=== PATIENT | male | born 1970 | race Caucasian/White ===

== ENCOUNTER → 2017-07-31 11:46 | Outpatient (CLI) | payer OTHER, SELFPAY ==
[2017-07-31 12:37] LABS: INR 3.1 (0.9-1.3); Prothrombin Time 33.3 SECONDS (10.1-12.7)
== END ==
PROVIDERS: PCP Family Medicine; Visit Provider Pharmacist Pharmacotherapy
DX: Z79.01 Long term (current) use of anticoagulants (principal)
CPT/HCPCS: 36415; 85610

== ENCOUNTER → 2017-08-07 13:39 | Outpatient (CLI) | payer OTHER, SELFPAY ==
[2017-08-07 14:55] LABS: INR 3.4 (0.9-1.3); Prothrombin Time 36.3 SECONDS (10.1-12.7)
== END ==
PROVIDERS: PCP Family Medicine; Visit Provider Pharmacist Pharmacotherapy
DX: Z79.01 Long term (current) use of anticoagulants (principal)
CPT/HCPCS: 36415; 85610

== ENCOUNTER → 2017-08-14 12:44 | Outpatient (CLI) | payer OTHER, SELFPAY ==
[2017-08-14 13:11] LABS: INR 4.1 (0.9-1.3); Prothrombin Time 44.2 SECONDS (10.1-12.7)
== END ==
PROVIDERS: PCP Family Medicine; Visit Provider Pharmacist Pharmacotherapy
DX: Z79.01 Long term (current) use of anticoagulants (principal)
CPT/HCPCS: 36415; 85610

== ENCOUNTER → 2017-08-21 13:07 | Outpatient (CLI) | payer OTHER, SELFPAY ==
[2017-08-21 13:33] LABS: INR 4.2 (0.9-1.3); Prothrombin Time 45.1 SECONDS (10.1-12.7)
== END ==
PROVIDERS: PCP Family Medicine; Visit Provider Pharmacist Pharmacotherapy
DX: Z79.01 Long term (current) use of anticoagulants (principal)
CPT/HCPCS: 36415; 85610

== ENCOUNTER → 2017-09-04 11:43 | Outpatient (CLI) | payer OTHER, SELFPAY ==
[2017-09-04 12:17] LABS: INR 3.8 (0.9-1.3); Prothrombin Time 40.6 SECONDS (10.1-12.7)
== END ==
PROVIDERS: PCP Family Medicine; Visit Provider Pharmacist Pharmacotherapy
DX: Z79.01 Long term (current) use of anticoagulants (principal)
CPT/HCPCS: 36415; 85610

== ENCOUNTER 2017-09-06 14:00 | Outpatient (RCR) | payer OTHER, SELFPAY | END 2017-09-06 15:17 | LOC: CAR 14:00 | PROVIDERS: PCP Family Medicine; Visit Provider Physician Assistant Medical | DX: Z95.812 Presence of fully implantable artificial heart (principal) | CPT/HCPCS: 93797; 93798 ==

== ENCOUNTER → 2017-10-19 10:55 | Outpatient (CLI) | payer OTHER, SELFPAY ==
[2017-10-19 12:47] LABS: Alanine Aminotransferase 35 IU/L (21-72); Albumin 3.8 g/dL (3.5-5.0); Albumin Globulin Ratio 1.5 (1.0-2.8); Alkaline Phosphatase 64 U/L (38-126); Aspartate Aminotransferase 18 IU/L (17-59); Bilirubin Total 0.2 mg/dL (0.2-1.3); Globulin 2.5 g/dL (1.7-4.1); HEMOLYSIS < 15 (0-50); Total Protein 6.3 g/dL (6.3-8.2)
== END ==
PROVIDERS: PCP Family Medicine; Visit Provider Internal Medicine Gastroenterology
DX: B18.2 Chronic viral hepatitis C (principal)
CPT/HCPCS: 36415; 80076; 86708; 87522

== ENCOUNTER → 2017-10-30 09:08 | Outpatient (CLI) | payer OTHER, SELFPAY ==
[2017-10-30 10:17] LABS: BUN Creatinine Ratio 27.6 (6-22); Blood Urea Nitrogen 47 mg/dL (9-20); Calcium 9.8 mg/dL (8.4-10.2); Carbon Dioxide 26 mmol/L (22-32); Chloride 101 mmol/L (98-107); Estimated Glomerular Filt Rate 43.2 mL/min (>60); Glucose 117 mg/dL (70-100); HEMOLYSIS < 15 (0-50); Potassium 3.8 mmol/L (3.4-5.1); Sodium 140 mmol/L (137-145)
[2017-11-02 16:48] LABS: Tacrolimus 10.4 mcg/L (5.0-20.0)
== END ==
PROVIDERS: PCP Family Medicine; Visit Provider Nurse Practitioner Acute Care
DX: Z94.1 Heart transplant status (principal)
CPT/HCPCS: 36415; 80048; 80197

== ENCOUNTER → 2017-11-15 09:34 | Outpatient (CLI) | payer OTHER, SELFPAY ==
[2017-11-15 10:53] LABS: BUN Creatinine Ratio 25.6 (6-22); Blood Urea Nitrogen 46 mg/dL (9-20); Carbon Dioxide 27 mmol/L (22-32); Chloride 99 mmol/L (98-107); Estimated Glomerular Filt Rate 40.5 mL/min (>60); Glucose 183 mg/dL (70-100); HEMOLYSIS < 15 (0-50); Potassium 4.1 mmol/L (3.4-5.1); Sodium 140 mmol/L (137-145)
[2017-11-18 11:47] LABS: Tacrolimus 11.6 mcg/L (5.0-20.0)
== END ==
PROVIDERS: PCP Family Medicine; Visit Provider Nurse Practitioner Acute Care
DX: Z94.1 Heart transplant status (principal)
CPT/HCPCS: 36415; 80048; 80197

== ENCOUNTER → 2017-11-28 11:11 | Outpatient (CLI) | payer OTHER, SELFPAY ==
[2017-11-28 12:28] LABS: BUN Creatinine Ratio 21.9 (6-22); Blood Urea Nitrogen 35 mg/dL (9-20); Calcium 10.2 mg/dL (8.4-10.2); Carbon Dioxide 30 mmol/L (22-32); Chloride 96 mmol/L (98-107); Estimated Glomerular Filt Rate 46.2 mL/min (>60); Glucose 122 mg/dL (70-100); HEMOLYSIS < 15 (0-50); Potassium 3.8 mmol/L (3.4-5.1); Sodium 142 mmol/L (137-145)
[2017-12-01 09:18] LABS: Tacrolimus 8.3 mcg/L (5.0-20.0)
== END ==
PROVIDERS: PCP Family Medicine; Visit Provider Internal Medicine Advanced Heart Failure and Transplant Cardiology
DX: Z94.1 Heart transplant status (principal)
CPT/HCPCS: 36415; 80048; 80197

== ENCOUNTER → 2017-12-26 09:48 | Outpatient (CLI) | payer OTHER, SELFPAY ==
[2017-12-26 11:06] LABS: Blood Urea Nitrogen 36 mg/dL (9-20); Calcium 9.9 mg/dL (8.4-10.2); Carbon Dioxide 27 mmol/L (22-32); Chloride 101 mmol/L (98-107); Estimated Glomerular Filt Rate 49.7 mL/min (>60); Glucose 133 mg/dL (70-100); HEMOLYSIS < 15 (0-50); Potassium 4.1 mmol/L (3.4-5.1); Sodium 142 mmol/L (137-145)
[2017-12-28 17:28] LABS: Tacrolimus 8.9 mcg/L (5.0-20.0)
== END ==
PROVIDERS: PCP Family Medicine; Visit Provider Nurse Practitioner Acute Care
DX: Z48.21 Encounter for aftercare following heart transplant (principal); Z94.1 Heart transplant status
CPT/HCPCS: 80048; 80197

== ENCOUNTER → 2018-01-11 10:23 | Outpatient (CLI) | payer OTHER, SELFPAY ==
[2018-01-11 11:34] LABS: Blood Urea Nitrogen 26 mg/dL (9-20); Calcium 9.2 mg/dL (8.4-10.2); Carbon Dioxide 25 mmol/L (22-32); Chloride 101 mmol/L (98-107); Estimated Glomerular Filt Rate 58.7 mL/min (>60); Glucose 117 mg/dL (70-100); HEMOLYSIS < 15 (0-50); Potassium 3.9 mmol/L (3.4-5.1); Sodium 141 mmol/L (137-145)
== END ==
PROVIDERS: PCP Family Medicine; Visit Provider Internal Medicine Advanced Heart Failure and Transplant Cardiology
DX: Z48.21 Encounter for aftercare following heart transplant (principal); Z94.1 Heart transplant status
CPT/HCPCS: 36415; 80048; 80197

== ENCOUNTER → 2018-01-30 11:39 | Outpatient (CLI) | payer OTHER, SELFPAY | PROVIDERS: PCP Family Medicine; Visit Provider Internal Medicine Advanced Heart Failure and Transplant Cardiology | DX: Z48.21 Encounter for aftercare following heart transplant (principal); Z94.1 Heart transplant status; R19.7 Diarrhea, unspecified | CPT/HCPCS: 36415; 87497 ==

== ENCOUNTER → 2018-02-14 11:16 | Outpatient (CLI) | payer OTHER, SELFPAY ==
[2018-02-14 12:13] LABS: Blood Urea Nitrogen 42 mg/dL (9-20); Calcium 9.8 mg/dL (8.4-10.2); Carbon Dioxide 27 mmol/L (22-32); Chloride 101 mmol/L (98-107); Estimated Glomerular Filt Rate 33.7 mL/min (>60); Glucose 113 mg/dL (70-100); HEMOLYSIS < 15 (0-50); Potassium 3.9 mmol/L (3.4-5.1); Sodium 143 mmol/L (137-145)
== END ==
PROVIDERS: PCP Family Medicine; Visit Provider Nurse Practitioner Acute Care
DX: Z48.21 Encounter for aftercare following heart transplant (principal); Z94.1 Heart transplant status
CPT/HCPCS: 36415; 80048; 80197

== ENCOUNTER → 2018-02-21 12:42 | Outpatient (CLI) | payer OTHER, SELFPAY ==
[2018-02-21 13:23] LABS: BUN Creatinine Ratio 25.7 (6-22); Blood Urea Nitrogen 54 mg/dL (9-20); Calcium 10.1 mg/dL (8.4-10.2); Carbon Dioxide 25 mmol/L (22-32); Chloride 99 mmol/L (98-107); Estimated Glomerular Filt Rate 33.7 mL/min (>60); Glucose 118 mg/dL (70-100); HEMOLYSIS < 15 (0-50); Potassium 4.2 mmol/L (3.4-5.1); Sodium 142 mmol/L (137-145)
== END ==
PROVIDERS: PCP Family Medicine; Visit Provider Internal Medicine Advanced Heart Failure and Transplant Cardiology
DX: Z48.21 Encounter for aftercare following heart transplant (principal)
CPT/HCPCS: 36415; 80048; 80197

== ENCOUNTER 2018-02-27 10:00 | Outpatient (RCR) | payer OTHER, SELFPAY ==
[2017-11-13 15:40] VITALS: BP 140/100; BP 144/100; BMI 29.3
[2018-01-24 15:44] VITALS: BP 128/82; BP 132/80
[2018-03-07 07:52] VITALS: BP 162/94
== END 2018-02-27 12:00 ==
LOC: CAR 10:00
PROVIDERS: PCP Family Medicine; Visit Provider Internal Medicine Advanced Heart Failure and Transplant Cardiology
DX: Z94.1 Heart transplant status (principal); Z48.21 Encounter for aftercare following heart transplant
CPT/HCPCS: 93798

== ENCOUNTER → 2018-03-04 13:50 | Outpatient (CLI) | payer OTHER, SELFPAY | PROVIDERS: PCP Family Medicine; Visit Provider Internal Medicine Advanced Heart Failure and Transplant Cardiology | DX: Z48.21 Encounter for aftercare following heart transplant (principal); Z94.1 Heart transplant status | CPT/HCPCS: 36415; 80197 ==

== ENCOUNTER → 2018-03-19 09:32 | Outpatient (CLI) | payer OTHER, SELFPAY ==
[2018-03-19 10:33] LABS: BUN Creatinine Ratio 17.3 (6-22); Blood Urea Nitrogen 26 mg/dL (9-20); Calcium 9.7 mg/dL (8.4-10.2); Carbon Dioxide 23 mmol/L (22-32); Chloride 105 mmol/L (98-107); Estimated Glomerular Filt Rate 49.7 mL/min (>60); Glucose 111 mg/dL (70-100); HEMOLYSIS < 15 (0-50); Potassium 4.5 mmol/L (3.4-5.1); Sodium 139 mmol/L (137-145)
== END ==
PROVIDERS: PCP Family Medicine; Referring Provider Internal Medicine Advanced Heart Failure and Transplant Cardiology; Visit Provider Psychiatry & Neurology Neurology
DX: Z94.1 Heart transplant status (principal)
CPT/HCPCS: 36415; 80048; 80197

== ENCOUNTER → 2018-04-11 08:19 | Outpatient (CLI) | payer OTHER, SELFPAY ==
[2018-04-11 09:33] LABS: Hemoglobin A1C% w Est Avg Glu 5.5 % (4.0-6.0)
[2018-04-11 09:37] LABS: BUN Creatinine Ratio 21.5 (6-22); Blood Urea Nitrogen 28 mg/dL (9-20); Calcium 9.8 mg/dL (8.4-10.2); Carbon Dioxide 26 mmol/L (22-32); Chloride 100 mmol/L (98-107); Estimated Glomerular Filt Rate 58.7 mL/min (>60); Glucose 101 mg/dL (70-100); HEMOLYSIS < 15 (0-50); Potassium 3.8 mmol/L (3.4-5.1); Sodium 139 mmol/L (137-145)
[2018-04-13 13:14] LABS: Fructosamine 243 umol/L (190-270)
== END ==
PROVIDERS: PCP Family Medicine; Visit Provider Internal Medicine Advanced Heart Failure and Transplant Cardiology
DX: R73.9 Hyperglycemia, unspecified (principal); T38.0X5A Adverse effect of glucocorticoids and synthetic analogues, initial encounter; Z94.1 Heart transplant status
CPT/HCPCS: 36415; 80048; 80197; 82985; 83036; 84378

== ENCOUNTER → 2018-04-23 08:23 | Outpatient (CLI) | payer OTHER, SELFPAY ==
[2018-04-23 11:08] LABS: Hemoglobin A1C% w Est Avg Glu 5.4 % (4.0-6.0)
[2018-04-23 11:28] LABS: BUN Creatinine Ratio 22.3 (6-22); Blood Urea Nitrogen 29 mg/dL (9-20); Calcium 9.5 mg/dL (8.4-10.2); Carbon Dioxide 24 mmol/L (22-32); Chloride 99 mmol/L (98-107); Estimated Glomerular Filt Rate 58.7 mL/min (>60); Glucose 91 mg/dL (70-100); HEMOLYSIS < 15 (0-50); Sodium 136 mmol/L (137-145)
== END ==
PROVIDERS: PCP Family Medicine; Visit Provider Internal Medicine Advanced Heart Failure and Transplant Cardiology
DX: Z48.21 Encounter for aftercare following heart transplant (principal); R73.9 Hyperglycemia, unspecified; T38.0X5A Adverse effect of glucocorticoids and synthetic analogues, initial encounter
CPT/HCPCS: 36415; 80048; 80197; 82985; 83036; 84378

== ENCOUNTER → 2018-05-01 08:40 | Outpatient (CLI) | payer OTHER, SELFPAY ==
[2018-05-01 09:46] LABS: BUN Creatinine Ratio 22.7 (6-22); Blood Urea Nitrogen 34 mg/dL (9-20); Calcium 9.8 mg/dL (8.4-10.2); Carbon Dioxide 26 mmol/L (22-32); Chloride 98 mmol/L (98-107); Estimated Glomerular Filt Rate 49.7 mL/min (>60); Glucose 106 mg/dL (70-100); HEMOLYSIS < 15 (0-50); Potassium 3.8 mmol/L (3.4-5.1); Sodium 137 mmol/L (137-145)
[2018-05-06 10:24] LABS: Miscellaneous to Univ of WA 10.5
== END ==
PROVIDERS: Family Provider Family Medicine; PCP Family Medicine; Visit Provider Internal Medicine Advanced Heart Failure and Transplant Cardiology
DX: Z94.1 Heart transplant status (principal)
CPT/HCPCS: 36415; 80048; 80197

== ENCOUNTER → 2018-05-15 08:18 | Outpatient (CLI) | payer OTHER, SELFPAY ==
[2018-05-15 09:10] LABS: Blood Urea Nitrogen 42 mg/dL (9-20); Carbon Dioxide 25 mmol/L (22-32); Chloride 99 mmol/L (98-107); Estimated Glomerular Filt Rate 49.7 mL/min (>60); Glucose 107 mg/dL (70-100); HEMOLYSIS < 15 (0-50); Potassium 4.3 mmol/L (3.4-5.1); Sodium 137 mmol/L (137-145)
== END ==
PROVIDERS: Family Provider Family Medicine; PCP Family Medicine; Visit Provider Registered Nurse
DX: Z94.1 Heart transplant status (principal)
CPT/HCPCS: 36415; 80048; 80197

== ENCOUNTER → 2018-06-19 07:50 | Outpatient (CLI) | payer OTHER, SELFPAY ==
[2018-06-19 10:08] LABS: Hemoglobin A1C% w Est Avg Glu 5.6 % (4.0-6.0)
[2018-06-19 10:48] LABS: BUN Creatinine Ratio 22.9 (6-22); Blood Urea Nitrogen 32 mg/dL (9-20); Calcium 9.9 mg/dL (8.4-10.2); Carbon Dioxide 26 mmol/L (22-32); Chloride 103 mmol/L (98-107); Estimated Glomerular Filt Rate 53.9 mL/min (>60); Glucose 101 mg/dL (70-100); HEMOLYSIS < 15 (0-50); Potassium 4.8 mmol/L (3.4-5.1); Sodium 139 mmol/L (137-145)
[2018-06-23 17:37] LABS: Tacrolimus 10.2 mcg/L (5.0-20.0)
[2018-06-24 14:24] LABS: Fructosamine 251 umol/L (190-270)
== END ==
PROVIDERS: Family Provider Internal Medicine Endocrinology, Diabetes & Metabolism; PCP Family Medicine; Visit Provider Internal Medicine Advanced Heart Failure and Transplant Cardiology
DX: R73.9 Hyperglycemia, unspecified (principal); T38.0X5A Adverse effect of glucocorticoids and synthetic analogues, initial encounter; Z94.1 Heart transplant status
CPT/HCPCS: 36415; 80048; 80197; 82985; 83036; 83735; 84378

== ENCOUNTER 2018-06-30 15:05 | Emergency (ER) | payer OTHER, SELFPAY ==
[2018-06-30 15:08] VITALS: BP 115/74; PULSE 94; RESP 20; TEMP 36.4; O2SAT 97
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
[2018-06-30 16:00] VITALS: BP 109/86; PULSE 86; RESP 18; O2SAT 98
[2018-06-30] MEDS: fentaNYL 100 MCG/2 ML INJ 50 MCG IV (16:09)
[2018-06-30 16:21] LABS: Add Manual Diff / Slide Review NO; Basophils Absolute Auto 0 /uL (0-100); Basophils Percent Auto 0.1 % (0-2); Eosinophils Absolute Auto 0 /uL (0-450); Eosinophils Percent Auto 0.3 % (2-4); Hematocrit 39.7 % (41-53); Hemoglobin 13.1 g/dL (13.5-17.5); Lymphocytes Absolute Auto 800 /uL (1100-4500); Lymphocytes Percent Auto 6.7 % (25-40); Mean Corpuscular HGB Conc 32.9 % (30-36); Mean Corpuscular Hemoglobin 29.4 PG (26-34); Mean Corpuscular Volume 89.3 fL (80-100); Monocytes Absolute Auto 700 /uL (0-900); Neutrophils Absolute Auto 10000 /uL (1500-7000); Neutrophils Percent Auto 86.9 % (50-75); Platelet Count 142 X10^3/uL (150-400); Red Blood Cell Count 4.45 X10^6/uL (4.5-5.9); Red Cell Distribution Width 15.2 % (11.6-14.8); White Blood Cell Count 11.5 X10^3/uL (4.5-11.0)
[2018-06-30 16:32] LABS: INR 1.1 (0.9-1.3); Prothrombin Time 12.8 SECONDS (10.1-12.7)
[2018-06-30 16:35] LABS: PTT Partial Thromboplastin Tim 36 SECONDS (26.4-36.2)
[2018-06-30 16:37] LABS: Alanine Aminotransferase 29 IU/L (21-72); Albumin 4.5 g/dL (3.5-5.0); Albumin Globulin Ratio 1.9 (1.0-2.8); Alkaline Phosphatase 44 U/L (38-126); Aspartate Aminotransferase 28 IU/L (17-59); BUN Creatinine Ratio 23.8 (6-22); Bilirubin Total 0.4 mg/dL (0.2-1.3); Blood Urea Nitrogen 38 mg/dL (9-20); Carbon Dioxide 21 mmol/L (22-32); Chloride 101 mmol/L (98-107); Creatine Kinase 297 U/L (55-170); Estimated Glomerular Filt Rate 46.2 mL/min (>60); Ethanol (ETOH) < 10 mg/dL; Globulin 2.4 g/dL (1.7-4.1); Glucose 109 mg/dL (70-100); HEMOLYSIS < 15 (0-50); Lipase 79 U/L (23-300); Potassium 4.1 mmol/L (3.4-5.1); Sodium 134 mmol/L (137-145); Total Protein 6.9 g/dL (6.3-8.2)
[2018-06-30 16:48] LABS: Troponin I 0.018 ng/mL (0.01-0.034)
[2018-06-30 16:52] LABS: CKMB % Relative Index 0.8 % (1.5-5.0); Creatine Kinase MB 2.32 ng/mL (<2.37)
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
[2018-06-30 17:14] VITALS: BP 124/78; PULSE 87; O2SAT 95
[2018-06-30] MEDS: HYDROMORPHONE 1 MG INJ 0.5 MG IV (17:20)
[2018-06-30] MEDS: SODIUM CHLORIDE 0.9% 1,000 ML 150 ML IV (17:21)
[2018-06-30] MEDS: OXYCODONE/ACETAMINOPHEN 5/325 TABLET 2 TAB PO (18:35)
[2018-06-30] MEDS: OXYCODONE/APAP 5/325 PREPACK 1 BOTTLE MISC (18:36)
[2018-06-30 19:01] VITALS: BP 139/91; PULSE 85; RESP 20; O2SAT 98
== END 2018-06-30 19:02 | disposition home or self-care (01) ==
PROVIDERS: Emergency Provider Emergency Medicine; Family Provider Internal Medicine Endocrinology, Diabetes & Metabolism; PCP Family Medicine
DX: S22.39XA Fracture of one rib, unspecified side, initial encounter for closed fracture (principal); R07.89 Other chest pain; R10.9 Unspecified abdominal pain; V86.56XA Driver of dirt bike or motor/cross bike injured in nontraffic accident, initial encounter
CPT/HCPCS: 36591; 71101; 71260; 72170; 74177; 80053; 80320; 81003; 82550; 82553; 83690; 84484; 85025; 85610; 85730; 86850; 86900; 86901; 96361; 96374; 96375; 99283; 99284; J1170; J3010; Q9967

== ENCOUNTER → 2018-07-18 08:22 | Outpatient (CLI) | payer OTHER, SELFPAY | PROVIDERS: Family Provider Internal Medicine Endocrinology, Diabetes & Metabolism; PCP Family Medicine; Visit Provider Internal Medicine Advanced Heart Failure and Transplant Cardiology | DX: Z94.1 Heart transplant status (principal); R73.9 Hyperglycemia, unspecified | CPT/HCPCS: 36415; 80048; 80197; 82985; 83036; 84378 ==

== ENCOUNTER → 2018-07-26 14:56 | Outpatient (CLI) | payer OTHER, SELFPAY ==
[2018-07-26 18:58] LABS: BUN Creatinine Ratio 25.7 (6-22); Blood Urea Nitrogen 36 mg/dL (9-20); Calcium 10.1 mg/dL (8.4-10.2); Carbon Dioxide 22 mmol/L (22-32); Chloride 99 mmol/L (98-107); Estimated Glomerular Filt Rate 53.9 mL/min (>60); Glucose 92 mg/dL (70-100); HEMOLYSIS 17 (0-50); Potassium 4.8 mmol/L (3.4-5.1); Sodium 134 mmol/L (137-145)
== END ==
PROVIDERS: PCP Family Medicine; Visit Provider Internal Medicine Advanced Heart Failure and Transplant Cardiology
DX: Z94.1 Heart transplant status (principal)
CPT/HCPCS: 36415; 80048

== ENCOUNTER → 2018-07-29 15:04 | Outpatient (CLI) | payer OTHER, SELFPAY ==
--- NOTE | 2018-07-29 | DI.US.S_ITS ---
PROCEDURE: US PERIPH VENOUS LOW EXTREM LT INDICATIONS: LEFT LOWER CALF TECHNIQUE: Real-time imaging, as well as color and pulse Doppler interrogation, were performed of the lower extremity deep veins from the inguinal ligament to the popliteal fossa. COMPARISON: None. FINDINGS: The common femoral, femoral and popliteal veins are normally compressible, and free of intraluminal thrombus. Color and pulse Doppler demonstrate normal phasic intraluminal flow. There is normal augmentation response to distal compression maneuver. IMPRESSION: No deep venous thrombosis. Dictated by: Margarette Harden M.D. on 07/29/2018 at 17:47 Approved by: Margarette Harden M.D. on 07/29/2018 at 17:47
== END ==
PROVIDERS: PCP Family Medicine; Visit Provider Physician Assistant
DX: S80.12XA Contusion of left lower leg, initial encounter (principal); R22.42 Localized swelling, mass and lump, left lower limb
CPT/HCPCS: 93971

== ENCOUNTER → 2018-09-26 08:18 | Outpatient (CLI) | payer OTHER, SELFPAY ==
[2018-09-26 09:58] LABS: Potassium 4.5 mmol/L (3.4-5.1)
[2018-09-26 09:59] LABS: Blood Urea Nitrogen 28 mg/dL (9-20); Calcium 10.2 mg/dL (8.4-10.2); Carbon Dioxide 22 mmol/L (22-32); Chloride 104 mmol/L (98-107); Estimated Glomerular Filt Rate 53.9 mL/min (>60); Glucose 101 mg/dL (70-100); HEMOLYSIS < 15 (0-50); Sodium 137 mmol/L (137-145)
[2018-09-28 13:24] LABS: Tacrolimus 5.4 mcg/L (5.0-20.0)
== END ==
PROVIDERS: Family Provider Family Medicine; PCP Family Medicine; Visit Provider Internal Medicine Advanced Heart Failure and Transplant Cardiology
DX: Z94.1 Heart transplant status (principal)
CPT/HCPCS: 36415; 80048; 80197

== ENCOUNTER → 2018-11-07 17:20 | Outpatient (CLI) | payer OTHER, SELFPAY | PROVIDERS: Family Provider Family Medicine; PCP Family Medicine; Visit Provider Physician Assistant | DX: R30.0 Dysuria (principal) | CPT/HCPCS: 87086 ==

== ENCOUNTER → 2018-11-13 08:08 | Outpatient (CLI) | payer OTHER, SELFPAY ==
[2018-11-13 09:46] LABS: BUN Creatinine Ratio 21.8 (6-22); Blood Urea Nitrogen 37 mg/dL (9-20); Calcium 9.9 mg/dL (8.4-10.2); Carbon Dioxide 26 mmol/L (22-32); Chloride 96 mmol/L (98-107); Estimated Glomerular Filt Rate 43.1 mL/min (>60); Glucose 104 mg/dL (70-100); HEMOLYSIS < 15 (0-50); Potassium 4.5 mmol/L (3.4-5.1); Sodium 135 mmol/L (137-145)
== END ==
PROVIDERS: Family Provider Family Medicine; PCP Family Medicine; Visit Provider Internal Medicine Advanced Heart Failure and Transplant Cardiology
DX: Z94.1 Heart transplant status (principal)
CPT/HCPCS: 36415; 80048; 80197

== ENCOUNTER → 2019-03-24 08:16 | Outpatient (CLI) | payer OTHER, SELFPAY ==
[2019-03-24 10:03] LABS: Blood Urea Nitrogen 27 mg/dL (9-20); Calcium 10.3 mg/dL (8.4-10.2); Carbon Dioxide 24 mmol/L (22-32); Chloride 101 mmol/L (98-107); Estimated Glomerular Filt Rate 49.5 mL/min (>60); Glucose 106 mg/dL (70-100); HEMOLYSIS < 15 (0-50); Potassium 5.3 mmol/L (3.4-5.1); Sodium 136 mmol/L (137-145)
[2019-03-26 16:28] LABS: Sirolimus < 2.5
[2019-03-27 08:13] LABS: Tacrolimus 5.1 mcg/L (5.0-20.0)
== END ==
PROVIDERS: Family Provider Registered Nurse; PCP Family Medicine; Visit Provider Internal Medicine Advanced Heart Failure and Transplant Cardiology
DX: Z94.1 Heart transplant status (principal)
CPT/HCPCS: 36415; 80048; 80197; 80299

== ENCOUNTER → 2019-04-01 08:07 | Outpatient (CLI) | payer OTHER, SELFPAY ==
[2019-04-01 09:46] LABS: BUN Creatinine Ratio 21.3 (6-22); Blood Urea Nitrogen 32 mg/dL (9-20); Calcium 10.2 mg/dL (8.4-10.2); Carbon Dioxide 23 mmol/L (22-32); Chloride 99 mmol/L (98-107); Estimated Glomerular Filt Rate 49.5 mL/min (>60); Glucose 101 mg/dL (70-100); HEMOLYSIS < 15 (0-50); Potassium 4.6 mmol/L (3.4-5.1); Sodium 134 mmol/L (137-145)
== END ==
PROVIDERS: Family Provider Registered Nurse; PCP Family Medicine; Visit Provider Internal Medicine Advanced Heart Failure and Transplant Cardiology
DX: Z94.1 Heart transplant status (principal)
CPT/HCPCS: 36415; 80048; 80195; 80197

== ENCOUNTER → 2019-04-07 08:29 | Outpatient (CLI) | payer OTHER, SELFPAY ==
[2019-04-07 10:12] LABS: BUN Creatinine Ratio 23.8 (6-22); Blood Urea Nitrogen 31 mg/dL (9-20); Calcium 9.9 mg/dL (8.4-10.2); Carbon Dioxide 24 mmol/L (22-32); Chloride 100 mmol/L (98-107); Estimated Glomerular Filt Rate 58.4 mL/min (>60); Glucose 110 mg/dL (70-100); HEMOLYSIS < 15 (0-50); Potassium 4.8 mmol/L (3.4-5.1); Sodium 137 mmol/L (137-145)
== END ==
PROVIDERS: Family Provider Registered Nurse; PCP Family Medicine; Visit Provider Internal Medicine Advanced Heart Failure and Transplant Cardiology
DX: Z94.1 Heart transplant status (principal)
CPT/HCPCS: 36415; 80048; 80195; 80197

== ENCOUNTER → 2019-04-15 08:10 | Outpatient (CLI) | payer OTHER, SELFPAY ==
[2019-04-15 10:20] LABS: BUN Creatinine Ratio 26.9 (6-22); Blood Urea Nitrogen 35 mg/dL (9-20); Calcium 10.3 mg/dL (8.4-10.2); Carbon Dioxide 23 mmol/L (22-32); Chloride 102 mmol/L (98-107); Estimated Glomerular Filt Rate 58.4 mL/min (>60); Glucose 101 mg/dL (70-100); HEMOLYSIS < 15 (0-50); Potassium 5.3 mmol/L (3.4-5.1); Sodium 136 mmol/L (137-145)
== END ==
PROVIDERS: Family Provider Registered Nurse; PCP Family Medicine; Referring Provider Internal Medicine Advanced Heart Failure and Transplant Cardiology; Visit Provider Internal Medicine Advanced Heart Failure and Transplant Cardiology
DX: Z94.1 Heart transplant status (principal)
CPT/HCPCS: 36415; 80048; 80195; 80197

== ENCOUNTER → 2019-04-23 08:03 | Outpatient (CLI) | payer OTHER, SELFPAY ==
[2019-04-23 09:47] LABS: BUN Creatinine Ratio 23.1 (6-22); Blood Urea Nitrogen 30 mg/dL (9-20); Calcium 9.8 mg/dL (8.4-10.2); Carbon Dioxide 21 mmol/L (22-32); Chloride 104 mmol/L (98-107); Estimated Glomerular Filt Rate 58.4 mL/min (>60); Glucose 106 mg/dL (70-100); HEMOLYSIS < 15 (0-50); Potassium 5.3 mmol/L (3.4-5.1); Sodium 138 mmol/L (137-145)
[2019-04-23 10:00] LABS: Rheumatoid Factor < 8.6 IU/mL (<12.0)
[2019-04-23 10:08] LABS: Erythrocyte Sedimentation Rate 9 MM/HR (0-15)
== END ==
PROVIDERS: Family Provider Registered Nurse; PCP Family Medicine; Referring Provider Internal Medicine Rheumatology; Visit Provider Internal Medicine Advanced Heart Failure and Transplant Cardiology
DX: Z94.1 Heart transplant status (principal); M25.50 Pain in unspecified joint
CPT/HCPCS: 36415; 80048; 80195; 80197; 85651; 86200; 86430

== ENCOUNTER → 2019-04-30 08:22 | Outpatient (CLI) | payer OTHER, SELFPAY ==
[2019-04-30 11:21] LABS: BUN Creatinine Ratio 22.9 (6-22); Blood Urea Nitrogen 32 mg/dL (9-20); Calcium 9.8 mg/dL (8.4-10.2); Carbon Dioxide 22 mmol/L (22-32); Chloride 105 mmol/L (98-107); Estimated Glomerular Filt Rate 53.6 mL/min (>60); Glucose 91 mg/dL (70-100); HEMOLYSIS < 15 (0-50); Potassium 4.8 mmol/L (3.4-5.1); Sodium 138 mmol/L (137-145)
== END ==
PROVIDERS: Family Provider Registered Nurse; PCP Family Medicine; Referring Provider Registered Nurse; Visit Provider Registered Nurse
DX: Z94.1 Heart transplant status (principal)
CPT/HCPCS: 36415; 80048; 80195; 80197

== ENCOUNTER → 2019-05-07 08:35 | Outpatient (CLI) | payer OTHER, SELFPAY ==
[2019-05-07 11:49] LABS: BUN Creatinine Ratio 17.7 (6-22); Blood Urea Nitrogen 23 mg/dL (9-20); Calcium 9.7 mg/dL (8.4-10.2); Carbon Dioxide 21 mmol/L (22-32); Chloride 105 mmol/L (98-107); Estimated Glomerular Filt Rate 58.4 mL/min (>60); Glucose 94 mg/dL (70-100); HEMOLYSIS < 15 (0-50); Potassium 4.9 mmol/L (3.4-5.1); Sodium 138 mmol/L (137-145)
== END ==
PROVIDERS: Family Provider Registered Nurse; PCP Family Medicine; Referring Provider Internal Medicine Advanced Heart Failure and Transplant Cardiology; Visit Provider Internal Medicine Advanced Heart Failure and Transplant Cardiology
DX: Z94.1 Heart transplant status (principal)
CPT/HCPCS: 36415; 80048; 80195; 80197

== ENCOUNTER → 2019-05-12 11:57 | Outpatient (CLI) | payer OTHER, SELFPAY ==
[2019-05-12 12:43] LABS: Influenza A - CEPHEID Flu A NEGATIVE (NEGATIVE); Influenza B - CEPHEID Flu B NEGATIVE (NEGATIVE)
== END ==
PROVIDERS: Family Provider Registered Nurse; PCP Family Medicine; Visit Provider Physician Assistant
DX: J02.9 Acute pharyngitis, unspecified (principal); R51 Headache; R52 Pain, unspecified
CPT/HCPCS: 87502

== ENCOUNTER → 2019-07-16 08:42 | Outpatient (CLI) | payer OTHER, SELFPAY ==
[2019-07-16 10:57] LABS: Add Manual Diff / Slide Review NO; Basophils Absolute Auto 0 /uL (0-100); Basophils Percent Auto 0.7 % (0-2); Eosinophils Absolute Auto 100 /uL (0-450); Eosinophils Percent Auto 2.7 % (2-4); Hematocrit 35.6 % (41-53); Lymphocytes Absolute Auto 900 /uL (1100-4500); Lymphocytes Percent Auto 24.1 % (25-40); Mean Corpuscular HGB Conc 33.8 % (30-36); Mean Corpuscular Hemoglobin 28.1 PG (26-34); Mean Corpuscular Volume 83.2 fL (80-100); Monocytes Absolute Auto 300 /uL (0-900); Monocytes Percent Auto 9.5 % (3-14); Neutrophils Absolute Auto 2300 /uL (1500-7000); Platelet Count 107 X10^3/uL (150-400); Red Blood Cell Count 4.28 X10^6/uL (4.5-5.9); Red Cell Distribution Width 14.8 % (11.6-14.8); White Blood Cell Count 3.7 X10^3/uL (4.5-11.0)
[2019-07-16 11:04] LABS: Alanine Aminotransferase 20 IU/L (<50); Albumin 4.5 g/dL (3.5-5.0); Albumin Globulin Ratio 1.5 (1.0-2.8); Alkaline Phosphatase 48 U/L (38-126); Aspartate Aminotransferase 26 IU/L (17-59); Bilirubin Total 0.3 mg/dL (0.2-1.3); Blood Urea Nitrogen 24 mg/dL (9-20); Calcium 9.6 mg/dL (8.4-10.2); Carbon Dioxide 22 mmol/L (22-32); Chloride 104 mmol/L (98-107); Creatine Kinase 144 U/L (55-170); Estimated Glomerular Filt Rate 56.9 mL/min (>60); Glucose 105 mg/dL (70-100); HEMOLYSIS < 15 (0-50); Magnesium 2.2 mg/dL (1.6-2.3); Potassium 4.3 mmol/L (3.4-5.1); Sodium 137 mmol/L (137-145); Total Protein 7.5 g/dL (6.3-8.2)
[2019-07-16 11:18] LABS: CKMB % Relative Index 0.7 % (1.5-5.0); Creatine Kinase MB 1.05 ng/mL (<2.37)
== END ==
PROVIDERS: Family Provider Registered Nurse; PCP Family Medicine; Referring Provider Internal Medicine Advanced Heart Failure and Transplant Cardiology; Visit Provider Internal Medicine Advanced Heart Failure and Transplant Cardiology
DX: Z94.1 Heart transplant status (principal)
CPT/HCPCS: 36415; 80053; 80195; 82550; 82553; 83735; 85025

== ENCOUNTER → 2019-09-24 08:43 | Outpatient (CLI) | payer OTHER, SELFPAY ==
[2019-09-24 09:56] LABS: BUN Creatinine Ratio 24.7 (6-22); Blood Urea Nitrogen 36 mg/dL (9-20); Calcium 9.3 mg/dL (8.4-10.2); Carbon Dioxide 27 mmol/L (22-32); Chloride 95 mmol/L (98-107); Estimated Glomerular Filt Rate 51.1 mL/min (>60); Glucose 99 mg/dL (70-100); HEMOLYSIS < 15 (0-50); Potassium 3.6 mmol/L (3.4-5.1); Sodium 131 mmol/L (137-145)
== END ==
PROVIDERS: Family Provider Registered Nurse; PCP Family Medicine; Referring Provider Registered Nurse; Visit Provider Registered Nurse
DX: Z94.1 Heart transplant status (principal)
CPT/HCPCS: 80048; 80195; 80197

== ENCOUNTER → 2020-01-09 08:01 | Outpatient (CLI) | payer OTHER, SELFPAY ==
[2020-01-09 10:28] LABS: BUN Creatinine Ratio 16.9 (6-22); Blood Urea Nitrogen 21 mg/dL (9-20); Calcium 9.4 mg/dL (8.4-10.2); Carbon Dioxide 30 mmol/L (22-32); Chloride 97 mmol/L (98-107); Estimated Glomerular Filt Rate > 60.0 mL/min (>60); Glucose 130 mg/dL (70-100); HEMOLYSIS < 15 (0-50); Potassium 3.1 mmol/L (3.4-5.1); Sodium 136 mmol/L (137-145)
[2020-01-13 14:36] LABS: Miscellaneous to LabCorp COMMENTS
== END ==
PROVIDERS: Family Provider Registered Nurse; PCP Family Medicine; Referring Provider Family Medicine; Visit Provider Internal Medicine Advanced Heart Failure and Transplant Cardiology
DX: Z94.1 Heart transplant status (principal)
CPT/HCPCS: 36415; 80048; 80195; 80197

== ENCOUNTER → 2020-01-23 08:17 | Outpatient (CLI) | payer OTHER, SELFPAY ==
[2020-01-23 09:28] LABS: BUN Creatinine Ratio 29.3 (6-22); Blood Urea Nitrogen 41 mg/dL (9-20); Calcium 9.4 mg/dL (8.4-10.2); Carbon Dioxide 33 mmol/L (22-32); Chloride 97 mmol/L (98-107); Estimated Glomerular Filt Rate 53.4 mL/min (>60); Glucose 109 mg/dL (70-100); HEMOLYSIS < 15 (0-50); Potassium 3.4 mmol/L (3.4-5.1); Sodium 136 mmol/L (137-145)
== END ==
PROVIDERS: Family Provider Registered Nurse; PCP Family Medicine; Referring Provider Internal Medicine Gastroenterology; Visit Provider Internal Medicine Gastroenterology
DX: Z94.1 Heart transplant status (principal)
CPT/HCPCS: 36415; 80048; 80195; 80197

== ENCOUNTER → 2020-03-11 08:02 | Outpatient (CLI) | payer OTHER, SELFPAY ==
[2020-03-11 09:27] LABS: Add Manual Diff / Slide Review NO; Basophils Absolute Auto 0 /uL (0-100); Basophils Percent Auto 0.5 % (0-2); Eosinophils Absolute Auto 0 /uL (0-450); Eosinophils Percent Auto 0.9 % (2-4); Hematocrit 40.7 % (41-53); Hemoglobin 13.7 g/dL (13.5-17.5); Lymphocytes Absolute Auto 1400 /uL (1100-4500); Lymphocytes Percent Auto 24.5 % (25-40); Mean Corpuscular HGB Conc 33.7 % (30-36); Mean Corpuscular Hemoglobin 30.1 PG (26-34); Mean Corpuscular Volume 89.5 fL (80-100); Monocytes Absolute Auto 500 /uL (0-900); Monocytes Percent Auto 8.3 % (3-14); Neutrophils Absolute Auto 3700 /uL (1500-7000); Neutrophils Percent Auto 65.8 % (50-75); Platelet Count 127 X10^3/uL (150-400); Red Blood Cell Count 4.55 X10^6/uL (4.5-5.9); Red Cell Distribution Width 15.9 % (11.6-14.8); White Blood Cell Count 5.6 X10^3/uL (4.5-11.0)
[2020-03-11 09:30] LABS: Alanine Aminotransferase 35 IU/L (<50); Albumin 4.3 g/dL (3.5-5.0); Albumin Globulin Ratio 1.5 (1.0-2.8); Alkaline Phosphatase 53 U/L (38-126); Aspartate Aminotransferase 36 IU/L (17-59); BUN Creatinine Ratio 30.7 (6-22); Bilirubin Total 0.2 mg/dL (0.2-1.3); Blood Urea Nitrogen 50 mg/dL (9-20); Calcium 9.7 mg/dL (8.4-10.2); Carbon Dioxide 29 mmol/L (22-32); Chloride 100 mmol/L (98-107); Estimated Glomerular Filt Rate 44.8 mL/min (>60); Globulin 2.8 g/dL (1.7-4.1); Glucose 107 mg/dL (70-100); HEMOLYSIS < 15 (0-50); Magnesium 1.9 mg/dL (1.6-2.3); Sodium 137 mmol/L (137-145); Total Protein 7.1 g/dL (6.3-8.2)
[2020-03-17 20:04] LABS: Miscellaneous to LabCorp 7.9
[2020-03-17 20:06] LABS: Miscellaneous to LabCorp 6.3
== END ==
PROVIDERS: Family Provider Registered Nurse; PCP Family Medicine; Referring Provider Internal Medicine Advanced Heart Failure and Transplant Cardiology; Visit Provider Internal Medicine Advanced Heart Failure and Transplant Cardiology
DX: Z94.1 Heart transplant status (principal)
CPT/HCPCS: 36415; 80053; 80195; 80197; 83735; 85025

== ENCOUNTER → 2020-04-02 08:19 | Outpatient (CLI) | payer OTHER, SELFPAY ==
[2020-04-02 10:26] LABS: BUN Creatinine Ratio 27.1 (6-22); Blood Urea Nitrogen 42 mg/dL (9-20); Calcium 9.6 mg/dL (8.4-10.2); Carbon Dioxide 34 mmol/L (22-32); Chloride 95 mmol/L (98-107); Estimated Glomerular Filt Rate 47.5 mL/min (>60); Glucose 103 mg/dL (70-100); HEMOLYSIS < 15 (0-50); Potassium 3.7 mmol/L (3.4-5.1); Sodium 136 mmol/L (137-145)
== END ==
PROVIDERS: Family Provider Registered Nurse; PCP Family Medicine; Referring Provider Internal Medicine Advanced Heart Failure and Transplant Cardiology; Visit Provider Internal Medicine Advanced Heart Failure and Transplant Cardiology
DX: Z94.1 Heart transplant status (principal)
CPT/HCPCS: 36415; 80048; 80195; 80197

== ENCOUNTER → 2020-04-19 08:30 | Outpatient (CLI) | payer OTHER, SELFPAY ==
[2020-04-19 09:59] LABS: BUN Creatinine Ratio 19.9 (6-22); Blood Urea Nitrogen 41 mg/dL (9-20); Calcium 9.6 mg/dL (8.4-10.2); Carbon Dioxide 30 mmol/L (22-32); Chloride 97 mmol/L (98-107); Estimated Glomerular Filt Rate 34.2 mL/min (>60); Glucose 110 mg/dL (70-100); HEMOLYSIS < 15 (0-50); Potassium 4.2 mmol/L (3.4-5.1); Sodium 132 mmol/L (137-145)
== END ==
PROVIDERS: Family Provider Registered Nurse; PCP Family Medicine
DX: Z94.1 Heart transplant status (principal)
CPT/HCPCS: 36415; 80048; 80195; 80197

== ENCOUNTER → 2020-05-04 08:12 | Outpatient (CLI) | payer OTHER, SELFPAY ==
[2020-05-04 09:02] LABS: BUN Creatinine Ratio 24.3 (6-22); Blood Urea Nitrogen 36 mg/dL (9-20); Calcium 9.7 mg/dL (8.4-10.2); Carbon Dioxide 28 mmol/L (22-32); Chloride 100 mmol/L (98-107); Estimated Glomerular Filt Rate 50.1 mL/min (>60); Glucose 103 mg/dL (70-100); HEMOLYSIS < 15 (0-50); Potassium 4.5 mmol/L (3.4-5.1); Sodium 134 mmol/L (137-145)
== END ==
PROVIDERS: Family Provider Registered Nurse; PCP Family Medicine; Referring Provider Registered Nurse; Visit Provider Registered Nurse
DX: Z94.1 Heart transplant status (principal)
CPT/HCPCS: 36415; 80048

== ENCOUNTER → 2020-05-11 08:02 | Outpatient (CLI) | payer OTHER, SELFPAY ==
[2020-05-11 10:48] LABS: HEMOLYSIS < 15 (0-50); Potassium 4.1 mmol/L (3.4-5.1)
== END ==
PROVIDERS: Family Provider Registered Nurse; PCP Family Medicine; Referring Provider Internal Medicine Advanced Heart Failure and Transplant Cardiology; Visit Provider Internal Medicine Advanced Heart Failure and Transplant Cardiology
DX: Z94.1 Heart transplant status (principal)
CPT/HCPCS: 36415; 84132

== ENCOUNTER → 2020-07-13 08:28 | Outpatient (CLI) | payer OTHER, SELFPAY ==
[2020-07-13 10:45] LABS: BUN Creatinine Ratio 20.2 (6-22); Blood Urea Nitrogen 36 mg/dL (9-20); Calcium 10.5 mg/dL (8.4-10.2); Carbon Dioxide 21 mmol/L (22-32); Chloride 101 mmol/L (98-107); Estimated Glomerular Filt Rate 40.5 mL/min (>60); Glucose 99 mg/dL (70-100); HEMOLYSIS < 15 (0-50); Sodium 134 mmol/L (137-145)
[2020-07-14 08:41] LABS: Sirolimus 3.3 ng/mL (3.0-20.0); Tacrolimus 3.8 ng/mL (2.0-20.0)
== END ==
PROVIDERS: Family Provider Registered Nurse; PCP Family Medicine; Referring Provider Internal Medicine Advanced Heart Failure and Transplant Cardiology; Visit Provider Internal Medicine Advanced Heart Failure and Transplant Cardiology
DX: Z94.1 Heart transplant status (principal)
CPT/HCPCS: 36415; 80048; 80195; 80197

== ENCOUNTER → 2020-08-18 08:28 | Outpatient (CLI) | payer OTHER, SELFPAY ==
[2020-08-18 09:14] LABS: Blood Urea Nitrogen 36 mg/dL (9-20); Calcium 9.5 mg/dL (8.4-10.2); Carbon Dioxide 24 mmol/L (22-32); Chloride 101 mmol/L (98-107); Estimated Glomerular Filt Rate 49.3 mL/min (>60); Glucose 110 mg/dL (70-100); HEMOLYSIS < 15 (0-50); Sodium 133 mmol/L (137-145)
== END ==
PROVIDERS: Family Provider Registered Nurse; PCP Family Medicine; Referring Provider Internal Medicine Advanced Heart Failure and Transplant Cardiology; Visit Provider Internal Medicine Advanced Heart Failure and Transplant Cardiology
DX: Z94.1 Heart transplant status (principal)
CPT/HCPCS: 36415; 80048; 80195; 80197

== ENCOUNTER → 2020-11-19 08:19 | Outpatient (CLI) | payer OTHER, SELFPAY ==
[2020-11-19 09:47] LABS: BUN Creatinine Ratio 20.8 (6-22); Blood Urea Nitrogen 36 mg/dL (9-20); Calcium 9.7 mg/dL (8.4-10.2); Carbon Dioxide 23 mmol/L (22-32); Chloride 104 mmol/L (98-107); Estimated Glomerular Filt Rate 41.9 mL/min (>60); Glucose 85 mg/dL (70-100); HEMOLYSIS < 15 (0-50); Potassium 4.2 mmol/L (3.4-5.1); Sodium 137 mmol/L (137-145)
[2020-11-19 09:52] LABS: NT-proBNP (BNP-Adult 18+) 3920 pg/mL (<125)
[2020-11-22 17:47] LABS: CMV DNA, Quant Real Time PCR Negative (Negative)
== END ==
PROVIDERS: Family Provider Registered Nurse; PCP Family Medicine; Referring Provider Internal Medicine Advanced Heart Failure and Transplant Cardiology; Visit Provider Internal Medicine Advanced Heart Failure and Transplant Cardiology
DX: Z94.1 Heart transplant status (principal); R19.7 Diarrhea, unspecified
CPT/HCPCS: 36415; 80048; 80195; 80197; 83880; 87497

== ENCOUNTER → 2020-11-22 16:24 | Outpatient (CLI) | payer OTHER, SELFPAY ==
[2020-11-22 21:39] LABS: Campylobacter Not Detected (Not Detect); Clostridium difficile toxin AB Not Detected (Not Detect); Cryptosporidium Not Detected (Not Detect); Cyclospora cayetanensis Not Detected (Not Detect); Entamoeba histolytica Not Detected (Not Detect); Enteroaggregative E.coli Not Detected (Not Detect); Enteropathogenic E.coli Not Detected (Not Detect); Enterotoxigenic E.coli It/st Not Detected (Not Detect); Giardia lamblia Not Detected (Not Detect); Plesiomonsa shigelloides Not Detected (Not Detect); Salmonella Not Detected (Not Detect); Shiga-like toxin-prod E.coli Not Detected (Not Detect); Shigella/Enteroinvasive E.coli Not Detected (Not Detect); Vibrio Not Detected (Not Detect); Vibrio cholerae Not Detected (Not Detect); Yersinia enterocolitica Not Detected (Not Detect)
[2020-11-22 21:40] LABS: Adenovirus F 40/41 Not Detected (Not Detect); Astrovirus Not Detected (Not Detect); Norovirus GI/GII Not Detected (Not Detect); Rotavirus A Not Detected (Not Detect); Sapovirus Not Detected (Not Detect)
== END ==
PROVIDERS: Family Provider Registered Nurse; PCP Family Medicine; Referring Provider Internal Medicine Advanced Heart Failure and Transplant Cardiology; Visit Provider Internal Medicine Advanced Heart Failure and Transplant Cardiology
DX: Z94.1 Heart transplant status (principal); R19.7 Diarrhea, unspecified
CPT/HCPCS: 87507

== ENCOUNTER → 2021-01-26 08:16 | Outpatient (CLI) | payer OTHER, SELFPAY ==
[2021-01-26 09:58] LABS: BUN Creatinine Ratio 29.8 (6-22); Blood Urea Nitrogen 70 mg/dL (9-20); Calcium 10.4 mg/dL (8.4-10.2); Carbon Dioxide 21 mmol/L (22-32); Chloride 105 mmol/L (98-107); Estimated Glomerular Filt Rate 29.3 mL/min (>60); Glucose 95 mg/dL (70-100); HEMOLYSIS < 15 (0-50); Potassium 4.2 mmol/L (3.4-5.1); Sodium 140 mmol/L (137-145)
[2021-01-26 16:25] LABS: Tacrolimus 6.5 ng/mL (2.0-20.0)
== END ==
PROVIDERS: Family Provider Registered Nurse; PCP Family Medicine; Referring Provider Internal Medicine Advanced Heart Failure and Transplant Cardiology; Visit Provider Internal Medicine Advanced Heart Failure and Transplant Cardiology
DX: Z94.1 Heart transplant status (principal)
CPT/HCPCS: 36415; 80048; 80169; 80197

== ENCOUNTER → 2021-07-13 12:45 | Outpatient (CLI) | payer OTHER, SELFPAY ==
[2021-07-13 13:38] LABS: BUN Creatinine Ratio 32.8 (6-22); Blood Urea Nitrogen 65 mg/dL (9-20); Calcium 9.9 mg/dL (8.4-10.2); Carbon Dioxide 25 mmol/L (22-32); Chloride 99 mmol/L (98-107); Estimated Glomerular Filt Rate 40 mL/min (>60); Glucose 141 mg/dL (70-100); HEMOLYSIS < 15 (0-50); Potassium 4.6 mmol/L (3.4-5.1); Sodium 138 mmol/L (137-145)
== END ==
PROVIDERS: Family Provider Registered Nurse; PCP Family Medicine; Referring Provider Internal Medicine Advanced Heart Failure and Transplant Cardiology; Visit Provider Internal Medicine Advanced Heart Failure and Transplant Cardiology
DX: Z94.1 Heart transplant status (principal)
CPT/HCPCS: 36415; 80048

== ENCOUNTER → 2021-08-03 08:08 | Outpatient (CLI) | payer OTHER, SELFPAY ==
[2021-08-03 09:01] LABS: Add Manual Diff / Slide Review NO; Basophils Absolute Auto 0 /uL (0-100); Basophils Percent Auto 0.6 % (0-2); Eosinophils Absolute Auto 100 /uL (0-450); Eosinophils Percent Auto 0.8 % (2-4); Hematocrit 35.6 % (41-53); Hemoglobin 11.7 g/dL (13.5-17.5); Lymphocytes Absolute Auto 1200 /uL (1100-4500); Lymphocytes Percent Auto 17.8 % (25-40); Mean Corpuscular HGB Conc 32.9 % (30-36); Mean Corpuscular Hemoglobin 30.4 PG (26-34); Mean Corpuscular Volume 92.4 fL (80-100); Monocytes Absolute Auto 600 /uL (0-900); Monocytes Percent Auto 8.8 % (3-14); Neutrophils Absolute Auto 5000 /uL (1500-7000); Platelet Count 144 X10^3/uL (150-400); Red Blood Cell Count 3.86 X10^6/uL (4.5-5.9); Red Cell Distribution Width 15.9 % (11.6-14.8)
[2021-08-03 09:14] LABS: BUN Creatinine Ratio 31.3 (6-22); Blood Urea Nitrogen 60 mg/dL (9-20); Carbon Dioxide 25 mmol/L (22-32); Chloride 99 mmol/L (98-107); Creatine Kinase 37 U/L (55-170); Estimated Glomerular Filt Rate 41 mL/min (>60); Glucose 110 mg/dL (70-100); Potassium 4.2 mmol/L (3.4-5.1); Sodium 138 mmol/L (137-145)
[2021-08-03 09:15] LABS: Alanine Aminotransferase 20 IU/L (<50); Albumin 4.9 g/dL (3.5-5.0); Albumin Globulin Ratio 1.8 (1.0-2.8); Alkaline Phosphatase 43 U/L (38-126); Aspartate Aminotransferase 22 IU/L (17-59); Bilirubin Total 0.7 mg/dL (0.2-1.3); Calcium 9.7 mg/dL (8.4-10.2); Globulin 2.7 g/dL (1.7-4.1); HEMOLYSIS < 15 (0-50); Magnesium 1.7 mg/dL (1.6-2.3); Total Protein 7.6 g/dL (6.3-8.2)
[2021-08-03 09:21] LABS: NT-proBNP (BNP-Adult 18+) 3620 pg/mL (<125)
[2021-08-03 09:41] LABS: Prolactin 8.4 ng/mL (3.7-17.9)
[2021-08-03 09:58] LABS: Estradiol, Total 26.9 pg/mL
[2021-08-04 07:14] LABS: Tacrolimus 4.8 ng/mL (2.0-20.0)
[2021-08-07 18:17] LABS: Percent Free Testosterone 3.35 % (1.50-4.20); Testosterone Free 15.45 ng/dL (5.00-21.00); Testosterone Total 461.1 ng/dL (264.0-916.0)
== END ==
PROVIDERS: Physician Assistant; Family Provider Registered Nurse; PCP Family Medicine; Referring Provider Internal Medicine Advanced Heart Failure and Transplant Cardiology; Visit Provider Internal Medicine Advanced Heart Failure and Transplant Cardiology
DX: Z94.1 Heart transplant status (principal); N64.4 Mastodynia
CPT/HCPCS: 36415; 80053; 80197; 82550; 82670; 83735; 83880; 84146; 84402; 84403; 85025

== ENCOUNTER → 2021-09-22 08:03 | Outpatient (CLI) | payer OTHER, SELFPAY ==
[2021-09-22 09:11] LABS: BUN Creatinine Ratio 21.5 (6-22); Blood Urea Nitrogen 48 mg/dL (9-20); Calcium 9.3 mg/dL (8.4-10.2); Carbon Dioxide 31 mmol/L (22-32); Chloride 99 mmol/L (98-107); Estimated Glomerular Filt Rate 35 mL/min (>60); Glucose 93 mg/dL (70-100); HEMOLYSIS < 15 (0-50); Potassium 3.8 mmol/L (3.4-5.1); Sodium 138 mmol/L (137-145)
[2021-09-23 09:32] LABS: Tacrolimus 11.8 ng/mL (2.0-20.0)
== END ==
PROVIDERS: Family Provider Registered Nurse; PCP Family Medicine; Referring Provider Internal Medicine Cardiovascular Disease; Visit Provider Internal Medicine Cardiovascular Disease
DX: Z94.1 Heart transplant status (principal); Z51.81 Encounter for therapeutic drug level monitoring
CPT/HCPCS: 36415; 80048; 80197

== ENCOUNTER → 2021-09-27 08:19 | Outpatient (CLI) | payer OTHER, SELFPAY ==
[2021-09-27 09:32] LABS: BUN Creatinine Ratio 26.3 (6-22); Blood Urea Nitrogen 57 mg/dL (9-20); Calcium 9.8 mg/dL (8.4-10.2); Carbon Dioxide 29 mmol/L (22-32); Chloride 99 mmol/L (98-107); Estimated Glomerular Filt Rate 36 mL/min (>60); Glucose 95 mg/dL (70-100); HEMOLYSIS < 15 (0-50); Potassium 4.8 mmol/L (3.4-5.1); Sodium 138 mmol/L (137-145)
[2021-09-29 09:57] LABS: Tacrolimus 10.8 ng/mL (2.0-20.0)
== END ==
PROVIDERS: Family Provider Registered Nurse; PCP Family Medicine; Referring Provider Internal Medicine Cardiovascular Disease; Visit Provider Internal Medicine Cardiovascular Disease
DX: Z94.1 Heart transplant status (principal)
CPT/HCPCS: 36415; 80048; 80197

== ENCOUNTER → 2021-12-23 08:07 | Outpatient (CLI) | payer OTHER, SELFPAY ==
[2021-12-23 09:21] LABS: BUN Creatinine Ratio 30.2 (6-22); Blood Urea Nitrogen 57 mg/dL (9-20); Calcium 9.6 mg/dL (8.4-10.2); Carbon Dioxide 24 mmol/L (22-32); Chloride 102 mmol/L (98-107); Estimated Glomerular Filt Rate 42 mL/min (>60); Glucose 99 mg/dL (70-100); HEMOLYSIS < 15 (0-50); Potassium 4.1 mmol/L (3.4-5.1); Sodium 138 mmol/L (137-145)
[2021-12-26 08:29] LABS: Tacrolimus 8.2 ng/mL (2.0-20.0)
== END ==
PROVIDERS: Family Provider Registered Nurse; PCP Family Medicine; Referring Provider Internal Medicine Advanced Heart Failure and Transplant Cardiology; Visit Provider Internal Medicine Advanced Heart Failure and Transplant Cardiology
DX: Z94.1 Heart transplant status (principal)
CPT/HCPCS: 36415; 80048; 80197

== ENCOUNTER → 2022-01-19 08:21 | Outpatient (CLI) | payer OTHER, SELFPAY ==
[2022-01-19 11:02] LABS: BUN Creatinine Ratio 31.8 (6-22); Blood Urea Nitrogen 56 mg/dL (9-20); Calcium 9.6 mg/dL (8.4-10.2); Carbon Dioxide 25 mmol/L (22-32); Chloride 97 mmol/L (98-107); Estimated Glomerular Filt Rate 46 mL/min (>60); Glucose 101 mg/dL (70-100); HEMOLYSIS < 15 (0-50); Potassium 4.3 mmol/L (3.4-5.1); Sodium 135 mmol/L (137-145)
[2022-01-20 08:22] LABS: Tacrolimus 7.3 ng/mL (2.0-20.0)
== END ==
PROVIDERS: Family Provider Registered Nurse; PCP Family Medicine; Referring Provider Internal Medicine Advanced Heart Failure and Transplant Cardiology; Visit Provider Internal Medicine Advanced Heart Failure and Transplant Cardiology
DX: Z94.1 Heart transplant status (principal)
CPT/HCPCS: 36415; 80048; 80197

== ENCOUNTER → 2022-03-15 08:00 | Outpatient (CLI) | payer OTHER, SELFPAY ==
[2022-03-15 08:45] LABS: Add Manual Diff / Slide Review NO; Basophils Absolute Auto 0 /uL (0-100); Basophils Percent Auto 0.4 % (0-2); Eosinophils Absolute Auto 100 /uL (0-450); Eosinophils Percent Auto 0.7 % (2-4); Hematocrit 36.8 % (41-53); Hemoglobin 11.7 g/dL (13.5-17.5); Lymphocytes Absolute Auto 1600 /uL (1100-4500); Lymphocytes Percent Auto 17.2 % (25-40); Mean Corpuscular HGB Conc 31.8 % (30-36); Mean Corpuscular Hemoglobin 30.2 PG (26-34); Mean Corpuscular Volume 95.2 fL (80-100); Monocytes Absolute Auto 900 /uL (0-900); Monocytes Percent Auto 10.3 % (3-14); Neutrophils Absolute Auto 6600 /uL (1500-7000); Neutrophils Percent Auto 71.4 % (50-75); Platelet Count 162 X10^3/uL (150-400); Red Blood Cell Count 3.87 X10^6/uL (4.5-5.9); Red Cell Distribution Width 20.3 % (11.6-14.8); White Blood Cell Count 9.2 X10^3/uL (4.5-11.0)
[2022-03-15 09:12] LABS: Poikilocytosis 1+
[2022-03-15 09:13] LABS: Anisocytosis 2+
[2022-03-15 09:17] LABS: Alanine Aminotransferase 27 IU/L (<50); Albumin 4.4 g/dL (3.5-5.0); Albumin Globulin Ratio 1.6 (1.0-2.8); Alkaline Phosphatase 70 U/L (38-126); Aspartate Aminotransferase 22 IU/L (17-59); BUN Creatinine Ratio 29.9 (6-22); Bilirubin Total 0.9 mg/dL (0.2-1.3); Blood Urea Nitrogen 55 mg/dL (9-20); Calcium 9.4 mg/dL (8.4-10.2); Carbon Dioxide 23 mmol/L (22-32); Chloride 99 mmol/L (98-107); Estimated Glomerular Filt Rate 43 mL/min (>60); Globulin 2.8 g/dL (1.7-4.1); Glucose 119 mg/dL (70-100); HEMOLYSIS < 15 (0-50); Magnesium 1.7 mg/dL (1.6-2.3); Potassium 4.4 mmol/L (3.4-5.1); Sodium 136 mmol/L (137-145); Total Protein 7.2 g/dL (6.3-8.2)
[2022-03-16 17:13] LABS: Tacrolimus 8.2 ng/mL (2.0-20.0)
== END ==
PROVIDERS: Family Provider Registered Nurse; PCP Family Medicine; Referring Provider Physician Assistant Medical; Visit Provider Physician Assistant Medical
DX: Z94.1 Heart transplant status (principal)
CPT/HCPCS: 36415; 80053; 80197; 83735; 85025

== ENCOUNTER → 2022-03-31 08:09 | Outpatient (CLI) | payer OTHER, SELFPAY ==
[2022-03-31 09:11] LABS: BUN Creatinine Ratio 24.1 (6-22); Blood Urea Nitrogen 42 mg/dL (9-20); Calcium 9.5 mg/dL (8.4-10.2); Carbon Dioxide 27 mmol/L (22-32); Chloride 102 mmol/L (98-107); Estimated Glomerular Filt Rate 46 mL/min (>60); Glucose 77 mg/dL (70-100); HEMOLYSIS < 15 (0-50); Potassium 4.4 mmol/L (3.4-5.1); Sodium 140 mmol/L (137-145)
[2022-04-01 08:08] LABS: Tacrolimus 6.4 ng/mL (2.0-20.0)
== END ==
PROVIDERS: Family Provider Registered Nurse; PCP Family Medicine; Referring Provider Internal Medicine Advanced Heart Failure and Transplant Cardiology; Visit Provider Internal Medicine Advanced Heart Failure and Transplant Cardiology
DX: Z94.1 Heart transplant status (principal)
CPT/HCPCS: 36415; 80048; 80197

== ENCOUNTER → 2022-06-26 14:49 | Outpatient (CLI) | payer OTHER, SELFPAY ==
--- NOTE | 2022-06-26 | DI.ECHO.S_ITS ---
[facility] +---------+ : : [address] [place] : : : : [id number] : : : : Phone: [phone]---------+ Echocardiogram Report + + :Name: JOANN BEEBE Study Date: 06/26/2022 Height: 69 in : :[facility] ReadingLocation: Weight: 204 lb : : Gender: Male BSA: 2.1 m2 : :: 1970 Age: 51 yrs BP: 107/89 mmHg: :Reason For Study: HEART TRANSPLANT STATUS HR: 100 : :Ordering Physician: GILDARDO, : :JOSHUA Watson Performed By: FLAKITA FRANCISCO : :Referring: JOSHUA EWING : + + Interpretation Summary Normal left ventricle size with ejection fraction 45-50%. There is a significant dyssynchronous contraction pattern, consistent with a conduction abnormality. The left atrium is severely dilated. The right atrium is moderately dilated. Mild mitral regurgitation. Mild tricuspid regurgitation. The right ventricular systolic pressure is estimated to be at least 32 mmHg based on an estimated right atrial pressure of 3 mm Hg. Mildly enlarged ascending aorta and aortic arch. Procedure: A two-dimensional transthoracic echocardiogram with color flow and Doppler was performed. The study quality was technically adequate. The patient was in normal sinus rhythm during the exam. Left Ventricle: The left ventricle is normal in size. There is normal left ventricular wall thickness. Left ventricular systolic function is mildly reduced. The ejection fraction is estimated to be 45-50%. There is a significant dyssynchronous contraction pattern, consistent with a conduction abnormality. There are no other obvious focal wall motion abnormalities. Right Ventricle: The right ventricle is not well visualized. Atria: The left atrium is severely dilated. The right atrium is moderately dilated. There is no Doppler evidence for an interatrial shunt. Mitral Valve: The mitral valve is normal. There is mild mitral regurgitation. Aortic Valve: The aortic valve is trileaflet. The aortic valve opens well. There is no aortic valve stenosis. The peak aortic velocity is 1.2 m/sec. The aortic valve mean gradient is 3.5 mmHg. No aortic regurgitation is present. Tricuspid Valve: The tricuspid valve is not well visualized, but is grossly normal. There is mild tricuspid regurgitation. The right ventricular systolic pressure is estimated to be at least 32 mmHg based on an estimated right atrial pressure of 3 mm Hg. Pulmonic Valve: The pulmonic valve is not well seen, but is grossly normal. There is no pulmonic valvular regurgitation. Great Vessels: The aortic root is mildly dilated. The ascending aorta is mildly enlarged. The aortic arch is mildly enlarged but is unchanged compared to the previous study. The IVC is of normal diameter and collapses greater than 50% with a sniff. This suggests a low right atrial pressure of 3 mm Hg. Pericardium/ Pleura There is no pericardial effusion. There is no pleural effusion. MMode/2D Measurements & Calculations LVIDd: 3.7 cm LVOT diam: 2.0 cm LVIDs: 2.8 cm Ao root diam: 3.8 cm FS: 22.5 % asc Aorta Diam: 3.8 cm IVSd: 0.82 cm Ao Arch Diam (Prox Trans): 3.2 cm LVPWd: 1.0 cm LV carrizales. diameter/BSA (cm/m^2): 1.8 LV sys. diameter/BSA (cm/m^2): 1.4 LA A2 area: 23.6 cm2 RA long axis: 6.3 cm LA A4 area: 29.7 cm2 RA area: 17.9 cm2 LA length (vol): 7.3 cm RA vol: 42.8 ml LA vol: 81.8 ml RA : 20.6 ml/m2 LA vol index: 39.3 ml/m2 IVC diam: 1.9 cm Doppler Measurements & Calculations Ao V2 max: 116.8 cm/sec LVOT Max Arden: 90.1 cm/sec Ao V2 mean: 90.4 cm/sec LV V1 max P.2 mmHg Ao max P.5 mmHg LV V1 VTI: 16.0 cm Ao mean P.5 mmHg JANICE(I,D): 2.9 cm2 Ao V2 VTI: 17.9 cm JANICE(V,D): 2.5 cm2 sev ratio: 0.89 JANICE indexed to BSA (cm^2/m^2): 1.4 MV E max arden: 144.0 cm/sec TR max arden: 270.4 cm/sec MV A max arden: 2.4 cm/sec TR max P.2 mmHg MV E/A: 60.8 PA V2 max: 189.6 cm/sec Lat Peak E' Arden: 5.0 cm/sec PA V2 mean: 139.5 cm/sec E/E' lat: 28.5 PA mean P.5 mmHg MV dec time: 0.14 sec PA pr(Accel): 27.6 mmHg MVA(VTI): 2.4 cm2 MV V2 mean: 95.7 cm/sec SV(LVOT): 51.8 ml MV mean P.6 mmHg MV V2 VTI: 21.3 cm Electronically signed by: Kehinde Hardy on Reading Physician:06/26/2022 04:39 PM
== END ==
PROVIDERS: Family Provider Registered Nurse; PCP Family Medicine; Referring Provider Physician Assistant Medical; Visit Provider Physician Assistant Medical
DX: I08.1 Rheumatic disorders of both mitral and tricuspid valves (principal); I77.810 Thoracic aortic ectasia; I77.89 Other specified disorders of arteries and arterioles; Z94.1 Heart transplant status
CPT/HCPCS: 93306

== ENCOUNTER → 2022-08-17 08:07 | Outpatient (CLI) | payer OTHER, SELFPAY ==
[2022-08-17 09:02] LABS: BUN Creatinine Ratio 24.5 (6-22); Blood Urea Nitrogen 35 mg/dL (9-20); Calcium 9.1 mg/dL (8.4-10.2); Carbon Dioxide 24 mmol/L (22-32); Chloride 103 mmol/L (98-107); Estimated Glomerular Filt Rate 59 mL/min (>60); Glucose 106 mg/dL (70-100); HEMOLYSIS < 15 (0-50); Potassium 4.2 mmol/L (3.4-5.1); Sodium 138 mmol/L (137-145)
[2022-08-17 09:31] LABS: TSH w/ Reflex to FT4 3.13 uIU/mL (0.47-4.68)
[2022-08-17 09:32] LABS: Testosterone 440 ng/dL (71.8-623)
[2022-08-22 08:24] LABS: Tacrolimus 4.2
== END ==
PROVIDERS: Family Provider Registered Nurse; PCP Family Medicine; Referring Provider Physician Assistant Medical; Visit Provider Physician Assistant Medical
DX: Z94.1 Heart transplant status (principal)
CPT/HCPCS: 36415; 80048; 80197; 84403; 84443

== ENCOUNTER → 2022-11-29 15:25 | Outpatient (CLI) | payer OTHER, SELFPAY ==
[2022-11-29 18:09] LABS: Blood Urea Nitrogen 39 mg/dL (9-20); Calcium 8.9 mg/dL (8.4-10.2); Carbon Dioxide 22 mmol/L (22-32); Chloride 102 mmol/L (98-107); Estimated Glomerular Filt Rate 45 mL/min (>60); Glucose 135 mg/dL (70-100); HEMOLYSIS < 15 (0-50); Potassium 4.2 mmol/L (3.4-5.1); Sodium 136 mmol/L (137-145)
== END ==
PROVIDERS: Family Provider Registered Nurse; PCP Family Medicine; Referring Provider Internal Medicine Advanced Heart Failure and Transplant Cardiology; Visit Provider Internal Medicine Advanced Heart Failure and Transplant Cardiology
DX: Z94.1 Heart transplant status (principal)
CPT/HCPCS: 36415; 80048

== ENCOUNTER → 2023-01-26 08:11 | Outpatient (CLI) | payer OTHER, SELFPAY | PROVIDERS: Family Provider Registered Nurse; PCP Family Medicine; Referring Provider Physician Assistant Medical; Visit Provider Physician Assistant Medical | DX: Z94.1 Heart transplant status (principal) | CPT/HCPCS: 36415; 80197 ==

== ENCOUNTER 2023-04-04 14:15 | Outpatient (RCR) | payer OTHER, SELFPAY | END 2023-04-04 16:15 | LOC: CAR 14:15 | PROVIDERS: Family Provider Registered Nurse; PCP Family Medicine; Referring Provider Registered Nurse; Visit Provider Registered Nurse | DX: T86.290 Cardiac allograft vasculopathy (principal) | CPT/HCPCS: 93798 ==